=== PATIENT | male | born 1945 | race Caucasian/White ===

== ENCOUNTER 2017-03-16 08:00 | Inpatient (IN) | payer MEDICARE ==
[~2017-03-16 08:00] MED LIST: CALTTAB2 PO; CENTTAB9 PO; FOSA70TA PO; GARL500T PO; NAPR-729 PO; PARO10TA PO; [UNRECOGNIZED DRUG - CODE]
[2017-03-22] MEDS ORDERED: CALC1TAB87 PO ×2 (08:57)
[2017-03-22] MEDS ORDERED: ALEN1TAB48 PO ×2 (08:57)
[2017-03-22] MEDS ORDERED: CENTCHW4 CHEW ×2 (08:57)
[2017-03-22] MEDS ORDERED: PARO10TA2 PO ×2 (08:57)
[2017-03-22] MEDS ORDERED: NAPR375T PO ×2 (08:57)
[2017-03-22] MEDS ORDERED: VITA200C3 PO ×2 (08:57)
[2017-04-01] MEDS ORDERED: INSULIN HUMAN REGULAR 1,000 UNITS/10 ML VIAL SQ PRN (06:00)
[2017-04-01] MEDS ORDERED: POVIDONE IODINE 5% (ANTISEPSIS KIT) 4 APPLICATIONS EACH NARE PRN (06:00)
[2017-04-01] MEDS ORDERED: LACTATED RINGER'S 1000 ML IV PRN (06:00)
[2017-04-01] MEDS ORDERED: METOPROLOL TARTRATE 25 MG TAB PO PRN (06:00)
[2017-04-01] MEDS ORDERED: SODIUM CHLORID 0.9% 500 ML IV PRN (06:00)
[2017-04-01] MEDS ORDERED: CHLORHEXIDINE GLUCONATE 2 % 1 PACK (2 CLOTHS) TOPICAL PRN (06:00)
[2017-04-01] MEDS ORDERED: VANCOMYCIN 1000 MG/NS 250 ML (for <70 kg) IV SCH ×2 (06:15)
[2017-04-01] MEDS ORDERED: ceFAZolin 2 GM PREMIX 50 ML IV SCH (06:15)
[2017-04-01] MEDS ORDERED: CHLORHEXIDINE GLUCONATE 4% SOLN 120 ML BTL TOPICAL SCH (06:15)
[2017-04-01 06:20] VITALS: BP 143/94; PULSE 76; RESP 18; TEMP 97.6; O2SAT 98
[2017-04-01] MEDS ORDERED: GABA600T PO ×2 (06:31)
[2017-04-01] MEDS ORDERED: TRAM50TA PO ×2 (06:31)
[2017-04-01] MEDS ORDERED: GABA300C5 PO ×2 (06:31)
[2017-04-01] MEDS ORDERED: CALC1TAB87 PO ×2 (06:31)
[2017-04-01] MEDS ORDERED: VITA-136 PO ×2 (06:45)
[2017-04-01] MEDS ORDERED: GARL400T2 PO ×2 (06:45)
[2017-04-01] MEDS ORDERED: CIPR-9 PO ×2 (06:46)
[2017-04-01] MEDS ORDERED: GENTAMICIN SULFATE 80 MG/2 ML VIAL ONE (06:55)
[2017-04-01 07:05] LABS: BACTERIA, URINE MOD /hpf; BLOOD, URINE MOD (NEG); CALCIUM OXALATE CRYSTALS,URINE RARE /hpf; COMMENT (UR) CATH-CULTURE IND; CULTURE IF INDICATED CATH CULTURE IND; GLUCOSE,URINE NEG (NEG); KETONE, URINE NEG (NEG); MUCUS URINE FEW /lpf (OCC); SQUAMOUS EPITHELIAL CELL URINE <1 /hpf (0-5); URINE COLOR YELLOW (YELLW/STRAW)
[2017-04-01] MEDS ORDERED: ACETAMINOPHEN 1000 MG/100 ML VIAL IV ONE (07:10)
[2017-04-01] MEDS ORDERED: MIDAZOLAM HCL 2 MG/2 ML VIAL ONE (07:10)
[2017-04-01 07:11] LABS: NITRITE,URINE POS (NEG)
[2017-04-01] MEDS ORDERED: TRANEXAMIC ACID 1,000 MG/100 ML NS INTRA-OP IV SCH ×2 (08:15)
[2017-04-01] MEDS ORDERED: HYDR-3583 PO (08:21)
[2017-04-01] MEDS ORDERED: CALCTAB19 PO (08:21)
[2017-04-01] MEDS ORDERED: VITA2000 PO (08:21)
[2017-04-01] MEDS ORDERED: XARE10TA PO (08:21)
[2017-04-01] MEDS ORDERED: ERGO1CAP30 PO (08:21)
--- NOTE | 2017-04-01 08:59 | PD.OP ---
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 Anesthesia: Gen. Surgeon: Jose Alejandro Alcala Shipyard Supervisor(s): MARIELENA Brewer PA-C The surgical procedure was assisted by my physician assistant county engineer. My P.A. presence was necessary throughout this case for the manipulation and positioning of the surgical extremity. My P.A. was assisting me throughout the duration of this procedure. The skill set of a physician assistant county engineer was medically necessary to complete this procedure. During the surgical case the nursing tech was working at the back table and the physician assistant county engineer was directly assisting me. Operation and Findings: This patient was seen and evaluated preoperatively. Patient sustained an injury resulting a left proximal tibia fracture. Patient was initially treated nonoperatively. Patient developed a nonunion. Informed consent was obtained preoperatively after detailed discussion of the risks and benefits of surgery. Risk of surgery including bleeding, infection, nonunion, painful hardware, stiffness, loss of motion, arthritis, need for knee replacement, as well as medical complications including blood clots, stroke, heart attack, and were discussed. I also discussed the possibility of using allograft bone graft . Preoperatively the operative site was marked. Patient was brought to the operating room and placed on the operating room table. Intravenous sedation and general endotracheal anesthesia were administered. IV antibiotics were given and a time out procedure was preformed. The operative leg was prepped with alcohol followed by Hibiclens and draped in the usual sterile fashion. Procedure began with a 4-inch curvilinear incision over the anterolateral knee. Subcutaneous tissue was treated with Bovie. Iliotibial band was split in line with fibers. At this point attention was turned to debridement of the fracture site. The fracture was exposed. Curettes and rongeurs were used to debride fibrous tissue from the wound. A TPS bur was used to debride bone down to healthy bleeding bone. A second incision was made over the medial aspect of the fracture. The medial aspect of the fracture was also debrided of fibrous tissue. At this point attention was turned to reduction of fracture. Fluoroscopy revealed appropriate alignment of fracture. A Synthes proximal lateral tibial plate was selected. The plate was provisionally held with K- wires. 3.5 cortical screws were used compress plate to bone distally, and a periarticular clamp was used to compress the medial and lateral tibial plateau fracture fragments together. Multiple locking screws were now placed proximally. Additional screws were placed in the shaft. K-wires were removed. Final fluoroscopy showed excellent alignment of fracture with well- placed hardware. The incision was thoroughly irrigated. At this point attention was turned iliac crest bone grafting. A 3 cm incision was made over the iliac crest. Subcutaneous tissue dissected with Bovie. Osteotomes were used to create a window in the iliac crest. Bone graft was now harvested from the iliac crest using curettes. After completion of harvesting of the bone graft fascia was closed with #1 Vicryl. Subcutaneous tissues closed with 3-0 Vicryl. Skin was closed with ryan. The incision area was infiltrated with quarter percent Marcaine with epinephrine. Blood was also harvested from the bone graft site. This was mixed with Nucell stem cell graft. After thawing of the stem cells and blood, this was mixed with iliac crest bone graft. This bone graft was now packed around the fracture nonunion site. The defect was completely filled. Fascia and iliotibial band closed with #1 Vicryl,. Subcutaneous tissues closed with 3-0 Vicryl and skin was closed with ryan. Sterile dressings were applied. The patient was transferred to recovery in stable condition. Jose Alejandro Alcala MD Apr 01, 2017 08:58
[2017-04-01] MEDS ORDERED: NALOXONE HCL 0.4 MG/ML AMP IV PRN (09:00)
[2017-04-01] MEDS ORDERED: MISCELLANEOUS NURSING INFORMATION XX PRN (09:00)
[2017-04-01] MEDS ORDERED: ACETAMINOPHEN/HYDROcodone 325 MG/7.5 MG TAB PO PRN (09:00)
[2017-04-01] MEDS ORDERED: SODIUM CHLORIDE 0.9% FLUSH 5 ML FLUSH IVF PRN (09:00)
[2017-04-01] MEDS ORDERED: diphenhydrAMINE HCL 25 MG CAP PO PRN (09:00)
[2017-04-01] MEDS ORDERED: Post-op Orders (for Pharmacy) MISC XX ONE (09:00)
[2017-04-01] MEDS ORDERED: MORPHINE SULFATE 4 MG/ML INJ IV PUSH PRN (09:00)
[2017-04-01] MEDS: SODIUM CHLORIDE 0.9% FLUSH 5 ML FLUSH IVF SCH ×2 (09:00→21:23)
[2017-04-01] MEDS ORDERED: ONDANSETRON HCL 4 MG/2 ML VIAL IVP PRN (09:00)
[2017-04-01] MEDS ORDERED: DO NOT ADM ANY ANTICOAGULANT DRUGS PRN (09:25)
[2017-04-01] MEDS ORDERED: fentaNYL CITRATE 250 MCG/5 ML AMP ONE (09:30)
--- NOTE | 2017-04-01 09:34 | RADRPT ---
EXAM DATE/TIME: 04/01/2017 08:23 [place] COMPARISON: No previous studies available for comparison. INDICATIONS : Post-op ORIF left proximal tibia fracture. MEDICAL HISTORY : None. SURGICAL HISTORY : None. ENCOUNTER: Initial ACUITY: 1 day PAIN SCORE: Non-responsive. LOCATION: Left Knee. FINDINGS: Lateral cortical side plate and screw fixation of proximal tibial fracture is noted. The hardware is intact. Reduction appears satisfactory. CONCLUSION: Satisfactory operative appearance Chucky Desouza MD on April 01, 2017 at 9:30 Board Certified Radiologist. This report was verified electronically.
[2017-04-01] MEDS: LACTATED RINGER'S 1000 ML INJ 1,000 ML IV SCH ×2 (10:00→22:30)
[2017-04-01] MEDS ORDERED: PILL SPLITTER OTHER PRN (10:30)
[2017-04-01] MEDS ORDERED: CHOLECALCIFEROL (VIT D3) 1000 UNIT TAB PO SCH (10:30)
[2017-04-01] MEDS ORDERED: ERGOCALCIFEROL (VIT D2) 50,000 UNIT CAP PO SCH (11:00)
[2017-04-01] MEDS: GABAPENTIN 300 MG CAP PO SCH (12:24)
[2017-04-01] MEDS: DOCUSATE SODIUM 50 MG/SENNA 8.6 MG TAB PO SCH ×2 (12:24→21:23)
[2017-04-01] MEDS: PARoxetine HCL 20 MG TAB PO SCH (12:25)
[2017-04-01] MEDS: CALCIUM/VITAMIN D 250 MG/125 U TAB PO SCH ×3 (12:25→16:47)
[2017-04-01] MEDS: ceFAZolin 2 GM PREMIX 50 ML IV SCH ×2 (13:23→21:23)
[2017-04-01 13:32] VITALS: O2SAT 96
[2017-04-01] MEDS ORDERED: ePHEDrine/NS 25 MG/5 ML SYR IV ONE (14:02)
[2017-04-01] MEDS ORDERED: PROPOFOL 200 MG/20 ML AMP IV ONE (14:02)
[2017-04-01] MEDS ORDERED: ONDANSETRON HCL 4 MG/2 ML VIAL IV PUSH ONE (14:03)
[2017-04-01] MEDS ORDERED: PHENYLEPH/NS 1000 MCG/10 ML SYR IV ONE (14:03)
[2017-04-01 16:00] VITALS: BP 114/72; PULSE 65; RESP 18; TEMP 96.2; O2SAT 99
[2017-04-01] MEDS: VANCOMYCIN INJ 1,000 MG in SODIUM CHLOR 0.9% 250 ML INJ 250 ML IV SCH (16:47)
[2017-04-01 19:00] VITALS: BP 158/84; PULSE 67; RESP 16; TEMP 96.8; O2SAT 98
[2017-04-01] MEDS ORDERED: GABAPENTIN 300 MG CAP PO SCH (21:00)
[2017-04-02] VITALS (7 sets, daily range): BP systolic 86–157; BP diastolic 59–93; PULSE 66–91; RESP 16–18; TEMP 96.8–99.2; O2SAT 95–98
[2017-04-02] MEDS: VANCOMYCIN INJ 1,000 MG in SODIUM CHLOR 0.9% 250 ML INJ 250 ML IV SCH (05:58)
[2017-04-02] MEDS: ceFAZolin 2 GM PREMIX 50 ML IV SCH ×2 (05:58→13:18)
[2017-04-02 06:04] LABS: BASOPHIL % 0.4 % (0.0-2.0); EOSINOPHIL # 0.2 TH/MM3 (0-0.4); EOSINOPHIL % 2.5 % (0.0-4.0); HEMATOCRIT 28.8 % (39.0-51.0); HEMO FLAGS DIFF FINAL; LYMPH % 12.3 % (9.0-44.0); LYMPHOCYTE # 0.8 TH/MM3 (1.0-4.8); MEAN CELL VOLUME 90.6 FL (80.0-100.0); MEAN CORPUSCULAR HEMOGLOBIN 32.2 PG (27.0-34.0); MEAN CORPUSCULAR HGB CONC 35.6 % (32.0-36.0); MONO % 10.7 % (0.0-8.0); NEUT % 74.1 % (16.0-70.0); PLATELET COUNT 165 TH/MM3 (150-450); RED BLOOD COUNT 3.17 MIL/MM3 (4.50-5.90); RED CELL DISTRIBUTION WIDTH 13.5 % (11.6-17.2); WHITE BLOOD COUNT 6.7 TH/MM3 (4.0-11.0)
--- NOTE | 2017-04-02 06:54 | PD.ORT.PN ---
Subjective Subjective Remarks POD 1 s/p ORIF left tibial plateau nonunion with ICBG and stem cell grafting doing well. no pain. patient is parapalegic and does not walk or have sensation Objective Vitals Vital Signs Date Time Temp Pulse Resp B/P Pulse Ox O2 Delivery O2 Flow Rate FiO2 04/02/17 04:00 99.2 78 16 94/61 98 04/02/17 02:00 86/59 04/02/17 00:00 98.2 82 17 95 04/01/17 19:00 96.8 67 16 158/84 98 04/01/17 16:00 96.2 65 18 114/72 99 04/01/17 13:32 96 21 04/01/17 11:35 66 16 149/82 99 Room Air 04/01/17 11:15 62 16 143/86 98 Room Air 04/01/17 11:00 64 16 144/85 100 Nasal Cannula 2 04/01/17 10:45 63 16 141/75 100 Nasal Cannula 2 04/01/17 10:30 62 16 170/96 100 Nasal Cannula 2 04/01/17 10:15 59 16 148/82 100 Nasal Cannula 2 04/01/17 10:00 56 16 163/94 100 Nasal Cannula 2 04/01/17 09:45 60 20 177/97 16 Nasal Cannula 2 04/01/17 09:25 97.5 67 20 146/77 99 Nasal Cannula 2 I/O 04/01/17 04/01/17 04/01/17 04/02/17 04/02/17 04/02/17 07:00 15:00 23:00 07:00 15:00 23:00 Intake Total 1480 ml 480 ml 480 ml Output Total 1270 ml 1500 ml 800 ml Balance 210 ml -1020 ml -320 ml Intake Oral 480 ml 480 ml 480 ml IV Total 200 ml Other 800 ml Output Urine Total 1070 ml 1500 ml 800 ml Estimated Blood Loss 200 ml # Bowel Movements 0 0 0 Result Diagram: 04/02/17 0545 Objective Remarks LLE: +CKS. no sensation distally. neg stephen. dressings clean and dry. intact. Assessment & Plan Assessment and Plan 1) Left Tibial plateau fx s/p ORIF with ICBG and stem cell grafting - POD 1 -NWB -maintain knee brace except for PT -PROM 0-90. -no quad sets, leg lifts, AROM -daily dressing changes xeroform/ 4x4/LUIS -DVT prophylaxis with lovenox and DC with xarelto -f/u daktoa Stoddard or ÓSCAR in 2 weeks -DC home today with [facility] Hernan Carlos Apr 02, 2017 06:54
--- NOTE | 2017-04-02 06:56 | HHI.FF ---
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 My clinical findings support the need for the requested home health care services because: Ltd mobility - disease progression I certify that my clinical findings support that this patient is homebound because: Post-op weakness Hernan Carlos Apr 02, 2017 06:56
[2017-04-02] MEDS ORDERED: ENOXAPARIN SODIUM 30 MG/0.3 ML SYRINGE SQ SCH (08:00)
[2017-04-02] MEDS: DOCUSATE SODIUM 50 MG/SENNA 8.6 MG TAB PO SCH (09:00)
[2017-04-02] MEDS ORDERED: CHOLECALCIFEROL (VIT D3) 1000 UNIT TAB PO SCH (09:00)
[2017-04-02] MEDS: GABAPENTIN 300 MG CAP PO SCH (09:00)
[2017-04-02] MEDS: SODIUM CHLORIDE 0.9% FLUSH 5 ML FLUSH IVF SCH (09:00)
--- NOTE | 2017-04-02 09:06 | HHI.DS ---
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 Diagnosis: Principal Procedures Open reduction internal fixation of left tibial plateau with iliac crest bone graft and stem cell grafting CBC/BMP: 04/02/17 0545 Significant Findings Laboratory Tests Test 04/01/17 04/02/17 06:20 05:45 Urine Turbidity HAZY (CLEAR) Urine Protein 30 mg/dL (NEG-TRACE) Urine Occult Blood MOD (NEG) Urine Nitrite POS (NEG) Urine Leukocyte Esterase LARGE (NEG) Urine RBC 57 /hpf (0-3) Urine WBC 169 /hpf (0-5) Urine WBC Clumps FEW (NONE) Urine Calcium Oxalate Crystals RARE /hpf (NONE) Urine Bacteria MOD /hpf (NONE) Urine Mucus FEW /lpf (OCC) Red Blood Count 3.17 MIL/MM3 (4.50-5.90) Hemoglobin 10.2 GM/DL (13.0-17.0) Hematocrit 28.8 % (39.0-51.0) Neutrophils (%) (Auto) 74.1 % (16.0-70.0) Monocytes (%) (Auto) 10.7 % (0.0-8.0) Lymphocytes # (Auto) 0.8 TH/MM3 (1.0-4.8) PE at Discharge LLE: +CKS. no sensation distally. neg stephen. dressings clean and dry. intact. Hospital Course Patient admitted from outpatient for open reduction internal fixation of left tibial plateau. He tolerated procedure well. He was admitted 6 north. On postoperative day 1 he states that he was resting comfortably. He reported no pain. He was hemodynamically stable. He is nonambulatory with his legs prior to the procedure. He'll be discharged home today. He will have home health care for daily dressing changes. He'll maintain his knee rays and work on passive motion from 0-90. He will remain nonweightbearing avoid any active leglifts or quad sets. He'll follow-up in the office with Dr. Alcala or his PA in 2 weeks Pt Condition on Discharge: Fair Discharge Disposition: Disch w/ Home Health Serv Discharge Instructions Diet Instructions: As Tolerated, No Restrictions Activities You Can Perform: Non Weight Bearing Follow up Referrals: Orthopedics - 04/15/17 @ [facility] with Jose Alejandro Alcala MD New Medications: Calcium Carbonate-Vitamin D (Calcium 600+D 200) 600-200 Mg-Unit Tab 1 TAB PO BID Nutritional Supplement Days 30 Ref 0 TAB Cholecalciferol (Vitamin D3) 2,000 Unit Cap 2000 UNITS PO DAILY Nutritional Supplement #56 Ref 0 CAP Ergocalciferol (Ergocalciferol) 50,000 Unit Cap 28524 UNITS PO Q7D Nutritional Supplement #56 CAP Hydrocodone-Acetaminophen (Hydrocodone-Acetaminophen) 10-325 mg Tab 1 TAB PO Q4H PRN PAIN #60 Ref 0 TAB Rivaroxaban (Xarelto) 10 Mg Tab 10 MG PO DAILY Blood Clot Prevention #14 Ref 0 TAB Continued Medications: Calcium Carbonate-Cholecalciferol (Calcium 600 with Vitamin D) 600-400 mg-Unit Tab 1 TAB PO DAILY Calcium Supplement Ref 0 TAB Calcium Carbonate-Cholecalciferol (Calcium 600 with Vitamin D) 600-400 mg-Unit Tab 1 TAB PO DAILY Calcium Supplement Ref 0 TAB Ciprofloxacin (Cipro) 500 Mg Tab 500 MG PO BID Infection Ref 0 TAB Gabapentin (Gabapentin) 300 Mg Cap 300 MG PO DAILY #60 Ref 0 CAP Gabapentin (Gabapentin) 600 Mg Tab 600 MG PO HS #30 Ref 0 TAB Garlic (Garlic) 400 Mg Tab 1000 MG PO DAILY Multiple Vitamins W/ Minerals (Centrum) 1 Chew 1 TAB CHEW DAILY Nutritional Supplement Ref 0 TAB Paroxetine (Paroxetine) 10 Mg Tab 10 MG PO DAILY #30 Ref 0 TAB Vitamin E (Vitamin E) 200 Unit Cap 400 UNITS PO DAILY Nutritional Supplement Ref 0 CAP Vitamin E Acetate (Vitamin E) 400 Unit Capsule 1 CAP PO DAILY Discontinued Medications: Alendronate (Alendronate) 70 Mg Tab 70 MG PO Q7D Osteporosis Treatment #4 Ref 0 TAB Naproxen (Naproxen) 375 Mg Tab 375 MG PO DAILY #60 Ref 0 TAB Tramadol (Tramadol) 50 Mg Tab 50 MG PO BID PRN PAIN Ref 0 TAB Hernan Carlos Apr 02, 2017 09:06
[2017-04-02] MEDS: LACTATED RINGER'S 1000 ML INJ 1,000 ML IV SCH (11:00)
[2017-04-02] MEDS: CALCIUM/VITAMIN D 250 MG/125 U TAB PO SCH ×2 (11:38→13:24)
[2017-04-02] MEDS: PARoxetine HCL 20 MG TAB PO SCH (11:39)
== END 2017-04-02 16:58 | disposition home health service (06) | DRG 493 ==
LOC: HSDI 04-01 05:34 → N06B 04-01 11:59
PROVIDERS: ADMIT Orthopaedic Surgery Orthopaedic Trauma; ATTEND Orthopaedic Surgery Orthopaedic Trauma
PROC: 0QUH07Z Supplement Left Tibia with Autologous Tissue Substitute, Open Approach (ICD-10-PCS; 2017-04-01)
PROC: 0QUH0KZ Supplement Left Tibia with Nonautologous Tissue Substitute, Open Approach (ICD-10-PCS; 2017-04-01)
PROC: 07DR0ZZ Extraction of Iliac Bone Marrow, Open Approach (ICD-10-PCS; 2017-04-01)
PROC: 0QSH04Z Reposition Left Tibia with Internal Fixation Device, Open Approach (ICD-10-PCS; principal; 2017-04-01 07:13)
DX: S82.142K Displaced bicondylar fracture of left tibia, subsequent encounter for closed fracture with nonunion (principal); G82.20 Paraplegia, unspecified
CPT/HCPCS: 73560; 76000; 81001; 82652; 83880; 85025; 87077; 87086; 87186; C1713; J0131; J0690; J1580; J1650; J2250; J2370; J2405; J3010; J3370; J7050; J7120; L1830

== ENCOUNTER 2017-03-22 08:41 | Emergency (ER) | payer MEDICARE ==
[~2017-03-22] VITALS: Ht 165.1 cm; Wt 68.0 kg
[2017-03-22 08:43] VITALS: BP 146/62; PULSE 72; RESP 16; TEMP 98.2; O2SAT 99
[2017-03-22] MEDS ORDERED: CENTCHW4 CHEW ×2 (08:57)
[2017-03-22] MEDS ORDERED: CALC1TAB87 PO ×2 (08:57)
[2017-03-22] MEDS ORDERED: PARO10TA2 PO ×2 (08:57)
[2017-03-22] MEDS ORDERED: VITA200C3 PO ×2 (08:57)
[2017-03-22] MEDS ORDERED: NAPR375T PO ×2 (08:57)
[2017-03-22] MEDS ORDERED: ALEN1TAB48 PO ×2 (08:57)
[2017-03-22 09:05] VITALS: BP 120/78; PULSE 68; RESP 25; O2SAT 99
[2017-03-22 09:31] LABS: AUTOMATED NEUTROPHIL # 3.1 TH/MM3 (1.8-7.7); BASOPHIL % 0.9 % (0.0-2.0); EOSINOPHIL # 0.2 TH/MM3 (0-0.4); EOSINOPHIL % 4.3 % (0.0-4.0); HEMATOCRIT 41.3 % (39.0-51.0); HEMO FLAGS DIFF FINAL; LYMPH % 26.2 % (9.0-44.0); LYMPHOCYTE # 1.3 TH/MM3 (1.0-4.8); MEAN CELL VOLUME 91.9 FL (80.0-100.0); MEAN CORPUSCULAR HEMOGLOBIN 31.7 PG (27.0-34.0); MEAN CORPUSCULAR HGB CONC 34.5 % (32.0-36.0); MONO % 5.2 % (0.0-8.0); NEUT % 63.4 % (16.0-70.0); PLATELET COUNT 184 TH/MM3 (150-450); RED BLOOD COUNT 4.49 MIL/MM3 (4.50-5.90); RED CELL DISTRIBUTION WIDTH 13.5 % (11.6-17.2); WHITE BLOOD COUNT 4.9 TH/MM3 (4.0-11.0)
--- NOTE | 2017-03-22 09:44 | PD ---
HPI Chief Complaint: Abnormal Results Time Seen by Provider: 08:59 Travel History International Travel<30 days: No Contact w/Intl Traveler<30days: No Traveled to known affect area: No History of Present Illness HPI Is a 71-year-old man who presents to the emergency department sent in for low sodium. 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 He was supposed to undergo a TURP today with Dr. Holly. He had labs drawn on Wednesday, 3 days ago. When he went to preop today they're reviewed the labs that showed a sodium of 119. He states that his urologist told him his bladder was "shooting" in the past. Unclear if he's had neurogenic bladder problems in the past or not. He has had trouble of low sodium in the past. Patient states she otherwise has been feeling generally well. He has a broken leg that is not healing and is given a half to have repaired with Dr. Alcala. History Past Medical History Narrative Medical Paraplegia following traumatic injuries, approximately C5, 50+ years ago BPH Influenza Vaccination: No Social History Alcohol Use: No Tobacco Use: No Allergies-Medications (Allergen,Severity, Reaction): Coded Allergies: Sulfa (Verified Allergy, Unknown, 03/22/17) Reported Meds & Prescriptions Reported Meds & Active Scripts Active Reported Vitamin E 200 Unit Cap 400 Units PO DAILY Paroxetine (Paroxetine HCl) 10 Mg Tab 10 Mg PO DAILY Naproxen 375 Mg Tab 375 Mg PO DAILY Centrum (Multiple Vitamins W/ Minerals) 1 Chew 1 Tab CHEW DAILY Calcium 600 with Vitamin D (Calcium Carbonate-Cholecalciferol) 600-400 mg-Unit Tab 1 Tab PO DAILY Alendronate (Alendronate Sodium) 70 Mg Tab 70 Mg PO Q7D [Garlic] 1 Tab PO DAILY Review of Systems Except as stated in HPI: all other systems reviewed are Neg Physical Exam Narrative GENERAL: 71-year-old man, paraplegic, looks well, no acute distress. SKIN: Focused skin assessment warm/dry. HEAD: Atraumatic. Normocephalic. EYES: Pupils equal and round. No scleral icterus. No injection or drainage. ENT: No nasal bleeding or discharge. Mucous membranes pink and moist. NECK: Trachea midline. No JVD. CARDIOVASCULAR: Regular rate and rhythm. No murmur appreciated. RESPIRATORY: No accessory muscle use. Clear to auscultation. Breath sounds equal bilaterally. GASTROINTESTINAL: Abdomen soft, non-tender, nondistended. Hepatic and splenic margins not palpable. MUSCULOSKELETAL: No obvious deformities. No clubbing. No cyanosis. No edema. NEUROLOGICAL: Awake and alert. Paraplegic. Otherwise unremarkable. Data Data Last Documented VS Vital Signs Date Time Temp Pulse Resp B/P Pulse Ox O2 Delivery O2 Flow Rate FiO2 03/22/17 09:05 68 25 120/78 99 Room Air 03/22/17 08:43 98.2 Orders Complete Blood Count With Diff (03/22/17 09:00) Comprehensive Metabolic Panel (03/22/17 09:00) Urinalysis - C+S If Indicated (03/22/17 09:00) Iv Access Insert/Monitor (03/22/17 09:00) Urinary Catheter Insert/Apply (03/22/17 09:22) Urine Culture (03/22/17 09:45) Labs Laboratory Tests Test 03/22/17 03/22/17 09:08 09:45 White Blood Count 4.9 TH/MM3 Red Blood Count 4.49 MIL/MM3 Hemoglobin 14.3 GM/DL Hematocrit 41.3 % Mean Corpuscular Volume 91.9 FL Mean Corpuscular Hemoglobin 31.7 PG Mean Corpuscular Hemoglobin 34.5 % Concent Red Cell Distribution Width 13.5 % Platelet Count 184 TH/MM3 Mean Platelet Volume 8.3 FL Neutrophils (%) (Auto) 63.4 % Lymphocytes (%) (Auto) 26.2 % Monocytes (%) (Auto) 5.2 % Eosinophils (%) (Auto) 4.3 % Basophils (%) (Auto) 0.9 % Neutrophils # (Auto) 3.1 TH/MM3 Lymphocytes # (Auto) 1.3 TH/MM3 Monocytes # (Auto) 0.3 TH/MM3 Eosinophils # (Auto) 0.2 TH/MM3 Basophils # (Auto) 0.0 TH/MM3 CBC Comment DIFF FINAL Differential Comment Sodium Level 133 MEQ/L Potassium Level 3.0 MEQ/L Chloride Level 99 MEQ/L Carbon Dioxide Level 22.2 MEQ/L Anion Gap 12 MEQ/L Blood Urea Nitrogen 12 MG/DL Creatinine 0.36 MG/DL Estimat Glomerular Filtration 238 ML/MIN Rate Random Glucose 88 MG/DL Calcium Level 7.1 MG/DL Protein Corrected Calcium 7.9 MG/DL Total Bilirubin 0.7 MG/DL Aspartate Amino Transf 18 U/L (AST/SGOT) Alanine Aminotransferase 19 U/L (ALT/SGPT) Alkaline Phosphatase 62 U/L Total Protein 5.6 GM/DL Albumin 3.0 GM/DL Urine Color YELLOW Urine Turbidity CLEAR Urine pH 7.0 Urine Specific [place] 1.011 Urine Protein NEG mg/dL Urine Glucose (UA) NEG mg/dL Urine Ketones NEG mg/dL Urine Occult Blood TRACE Urine Nitrite POS Urine Bilirubin NEG Urine Urobilinogen LESS THAN 2.0 MG/DL Urine Leukocyte Esterase LARGE Urine RBC 1 /hpf Urine WBC 35 /hpf Urine Bacteria MANY /hpf Microscopic Urinalysis Comment CULTURE INDICATED MDM Medical Decision Making Medical Screen Exam Complete: Yes Emergency Medical Condition: Yes Interpretation(s) LABS: CBC unremarkable. CMP is unremarkable. Sodium 133. UA with a little bit of pyuria. Differential Diagnosis Hyponatremia, obstructive uropathy, bladder outlet obstruction, renal failure, other Narrative Course Medical decision making This is a 70 year-old woman who presents emergency department for critical hyponatremia. Looks overall well. Suspect this is from obstructive uropathy. We'll place Salazar catheter, check labs, admission. FINAL: The patient's sodium is normal now. I think this is probably some chronic retention causing hyponatremia. We placed a Salazar catheter. I spoke with Dr. Holly, we will discharge patient with Salazar catheter. He will follow -up with him this week. Diagnosis Primary Impression: Hyponatremia Additional Impression: Chronic retention of urine Additional Instructions: Follow-up with Dr. Holly this week. Return to the emergency department for any new or worsening symptoms. Med/Other Pt SpecificInfo: No Change to Meds Disposition: 01 DISCHARGE HOME Condition: Stable Luis Wayne MD Mar 22, 2017 09:44
[2017-03-22 10:01] LABS: BICARBONATE 22.2 MEQ/L (21.0-32.0); CALCIUM-PROTEIN CORRECTED 7.9 MG/DL (8.5-10.1); TOTAL BILIRUBIN ADULT 0.7 MG/DL (0.2-1.0)
[2017-03-22 10:26] LABS: BACTERIA, URINE MANY /hpf; BLOOD, URINE TRACE (NEG); COMMENT (UR) CULTURE INDICATED; CULTURE IF INDICATED CULTURE INDICATED; GLUCOSE,URINE NEG (NEG); KETONE, URINE NEG (NEG); URINE COLOR YELLOW (YELLW/STRAW)
[2017-03-22 10:27] LABS: NITRITE,URINE POS (NEG)
== END 2017-03-22 14:49 | disposition home or self-care (01) ==
LOC: NEPC 08:41
DX: E87.1 Hypo-osmolality and hyponatremia (principal); N40.1 Benign prostatic hyperplasia with lower urinary tract symptoms; R33.8 Other retention of urine; G82.20 Paraplegia, unspecified; B96.5 Pseudomonas (aeruginosa) (mallei) (pseudomallei) as the cause of diseases classified elsewhere
CPT/HCPCS: 51703; 80053; 81001; 85025; 87077; 87086; 87186

== ENCOUNTER 2017-07-05 14:32 | Emergency (ER) | payer MEDICARE ==
[2017-07-05] VITALS (12 sets, daily range): BP systolic 56–203; BP diastolic 37–132; PULSE 66–110; RESP 14–18; TEMP 98.6; O2SAT 94–99
[~2017-07-05 14:32] MED LIST changes: +CALC1TAB87 PO; +CALCTAB19 PO; -CALTTAB2 PO; +CENTCHW4 CHEW; -CENTTAB9 PO; +CIPR-9 PO; -FOSA70TA PO; +GABA300C5 PO; +GABA600T PO; +GARL400T2 PO; -GARL500T PO; +HYDR-3583 PO; -NAPR-729 PO; -PARO10TA PO; +PARO10TA2 PO; +VITA-142 PO; +VITA2000 PO; +VITA200C3 PO; +VITA500012 PO; +XARE10TA PO; -[UNRECOGNIZED DRUG - CODE]
[2017-07-05] MEDS ORDERED: cloNIDine HCL 0.1 MG TAB PO ONE (15:30)
--- NOTE | 2017-07-05 15:39 | PD ---
HPI Chief Complaint: Complaint Time Seen by Provider: 15:19 Travel History International Travel<30 days: No Contact w/Intl Traveler<30days: No Traveled to known affect area: No History of Present Illness HPI patient has had indwelling martinez for months while awaiting a turp....per patient he gets his martinez exchanged monthly via dr umanzor's office and is scheduled to have that done in about 2 weeks. however today started to have suprapubic spasm like pain, 03/01, martinez is draining adequately but now urine has an odor that he didn't used to have....is here to have his urine checkd in case it is a uti PFSH Past Medical History Autoimmune Disease: No Blood Disorders: No Depression: Yes Cancer: No Cardiovascular Problems: No Diabetes: No Diminished Hearing: No Endocrine: No Gastrointestinal Disorders: Yes (EXT CATHETER) Glaucoma: No Genitourinary: Yes (MARTINEZ) Headaches: Yes Hepatitis: No Hiatal Hernia: No Hypertension: No Immune Disorder: No Musculoskeletal: Yes (QUAD) Neurologic: Yes (NO SENSATION BELOW CHEST/QUADRAPLEGIC) Psychiatric: No Reproductive: Yes Respiratory: No Thyroid Disease: No Past Surgical History Abdominal Surgery: No AICD: No Body Medical Devices: NECK Cardiac Surgery: No Ear Surgery: No Endocrine Surgery: No Eye Surgery: No Genitourinary Surgery: No Gynecologic Surgery: No Joint Replacement: No Neurologic Surgery: Yes (CERVICAL FUSION) Oral Surgery: Yes (EXC. VOCAL CORD MASS 2004) Pacemaker: No Thoracic Surgery: No Other Surgery: Yes Social History Alcohol Use: No Tobacco Use: No Substance Use: No Allergies-Medications (Allergen,Severity, Reaction): Coded Allergies: Sulfa (Sulfonamide Antibiotics) (Unverified Allergy, Unknown, 07/05/17) Reported Meds & Prescriptions Reported Meds & Active Scripts Active Calcium 600+D 200 (Calcium Carbonate-Vitamin D) 600-200 Mg-Unit Tab 1 Tab PO BID 30 Days Vitamin D3 (Cholecalciferol) 2,000 Unit Cap 2,000 Units PO DAILY Ergocalciferol 50,000 Unit Cap 50,000 Units PO Q7D Xarelto (Rivaroxaban) 10 Mg Tab 10 Mg PO DAILY Hydrocodone-Acetaminophen 10-325 mg Tab 1 Tab PO Q4H PRN Reported Cipro (Ciprofloxacin HCl) 500 Mg Tab 500 Mg PO BID Vitamin E (Vitamin E Acetate) 400 Unit Capsule 1 Cap PO DAILY Garlic 400 Mg Tab 1,000 Mg PO DAILY Calcium 600 with Vitamin D (Calcium Carbonate-Cholecalciferol) 600-400 mg-Unit Tab 1 Tab PO DAILY Gabapentin 600 Mg Tab 600 Mg PO HS Gabapentin 300 Mg Cap 300 Mg PO DAILY Vitamin E 200 Unit Cap 400 Units PO DAILY Paroxetine (Paroxetine HCl) 10 Mg Tab 10 Mg PO DAILY Centrum (Multiple Vitamins W/ Minerals) 1 Chew 1 Tab CHEW DAILY Calcium 600 with Vitamin D (Calcium Carbonate-Cholecalciferol) 600-400 mg-Unit Tab 1 Tab PO DAILY Physical Exam Narrative GENERAL: SKIN: Warm and dry. HEAD: Atraumatic. Normocephalic. EYES: Pupils equal and round. No scleral icterus. No injection or drainage. ENT: No nasal bleeding or discharge. Mucous membranes pink and moist. NECK: Trachea midline. No JVD. CARDIOVASCULAR: Regular rate and rhythm. RESPIRATORY: No accessory muscle use. Clear to auscultation. Breath sounds equal bilaterally. GASTROINTESTINAL: Abdomen soft, non-tender, nondistended. MUSCULOSKELETAL: Extremities without clubbing, cyanosis, or edema. No obvious deformities. NEUROLOGICAL: Awake and alert. patient is otherwise paraplegic with neurogenic bladder, no movement to lower extremities, wheelchair bound. Normal speech. PSYCHIATRIC: Appropriate mood and affect; insight and judgment normal. Data Data Last Documented VS Vital Signs Date Time Temp Pulse Resp B/P (MAP) Pulse Ox O2 Delivery O2 Flow Rate FiO2 07/05/17 16:25 98 18 86/52 (63) 99 Room Air 07/05/17 14:34 98.6 Orders Orders Urinalysis - C+S If Indicated (07/05/17 15:25) Clonidine (Catapres) (07/05/17 15:30) Phenazopyridine (Pyridium) (07/05/17 16:15) Urine Culture (07/05/17 15:25) Iv Access Insert/Monitor (07/05/17 17:04) Ns (Bolus) Inj (07/05/17 17:15) Ceftriaxone Inj (Rocephin Inj) (07/05/17 17:15) Labs Laboratory Tests Test 07/05/17 15:25 Urine Color LIGHT-YELLOW Urine Turbidity CLOUDY Urine pH 7.5 Urine Specific [place] 1.007 Urine Protein 30 mg/dL Urine Glucose (UA) NEG mg/dL Urine Ketones NEG mg/dL Urine Occult Blood MOD Urine Nitrite POS Urine Bilirubin NEG Urine Urobilinogen LESS THAN 2.0 MG/DL Urine Leukocyte Esterase LARGE Urine RBC 13 /hpf Urine WBC 47 /hpf Urine Amorphous Sediment MANY Urine Bacteria MANY /hpf Urine Mucus FEW /lpf Microscopic Urinalysis Comment CULTURE INDICATED MDM Medical Decision Making Medical Screen Exam Complete: Yes Emergency Medical Condition: Yes Medical Record Reviewed: Yes Differential Diagnosis UTI V RENAL INSUFF Narrative Course DUE TO HYPERTENSION PATIENT WAS GIVEN SOME CLONIDINE, NOW AFTER REEVALUATION PATIENT NOTED TO HAVE LOW BP, WILL PLACE IV, GIVE IVF AND PROVIDE IV ABX AT THE SAME TIME. Diagnosis Primary Impression: UTI Patient Instructions: General Instructions, Urinary Tract Infection in Men (DC) Scripts Nitrofurantoin Monohydrate Macrocrystals (Macrobid) 100 Mg Capsule 100 MG PO BID for Infection, #14 CAP 0 Refills Prov: Blake Hunt MD 07/05/17 Disposition: 01 DISCHARGE HOME Condition: Stable Blake Hunt MD Jul 05, 2017 15:39
[2017-07-05 16:07] LABS: BACTERIA, URINE MANY /hpf; BLOOD, URINE MOD (NEG); COMMENT (UR) CULTURE INDICATED; CULTURE IF INDICATED CULTURE INDICATED; GLUCOSE,URINE NEG (NEG); KETONE, URINE NEG (NEG); MUCUS URINE FEW /lpf (OCC); NITRITE,URINE POS (NEG); PH, URINE 7.5 (5.0-8.5); URINE COLOR LIGHT-YELLOW (YELLW/STRAW)
[2017-07-05] MEDS ORDERED: PHENAZOPYRIDINE HCL 100 MG TAB PO ONE (16:15)
[2017-07-05] MEDS ORDERED: MACR100C2 PO (17:08)
[2017-07-05] MEDS ORDERED: cefTRIAXone INJ 1,000 MG in SODIUM CHLORIDE 0.9% INJ 100 ML IV ONE (17:15)
[2017-07-05] MEDS ORDERED: SODIUM CHLORID 0.9% 500 ML INJ 500 ML IV ONE (17:15)
[2017-07-05] MEDS ORDERED: SODIUM CHLOR 0.9% 1000 ML INJ 1,000 ML IV ONE ×2 (17:45→19:30)
== END 2017-07-05 20:33 | disposition home or self-care (01) ==
LOC: NEPD 14:32
DX: N39.0 Urinary tract infection, site not specified (principal); G82.20 Paraplegia, unspecified; N31.9 Neuromuscular dysfunction of bladder, unspecified; I10 Essential (primary) hypertension; B96.89 Other specified bacterial agents as the cause of diseases classified elsewhere; Z86.59 Personal history of other mental and behavioral disorders; Z87.19 Personal history of other diseases of the digestive system; Z87.448 Personal history of other diseases of urinary system; Z87.39 Personal history of other diseases of the musculoskeletal system and connective tissue; Z86.69 Personal history of other diseases of the nervous system and sense organs
CPT/HCPCS: 81001; 87077; 87086; 87186; 96361; 96365; 99284; J0696; J7030; J7040